=== PATIENT | female | born 1955 | race African-American/Black ===

== ENCOUNTER 2018-07-11 08:47 | Emergency (ER) | payer MEDICARE, OTHER ==
[2018-07-11] MEDS: ONDANSETRON (ODT) 4 MG TAB ODT (10:17)
[2018-07-11] MEDS: HYDROmorphONE 0.5 MG/0.5 ML SYG IM (10:18)
== END 2018-07-11 12:46 | disposition home or self-care (01) ==
LOC: E/R 08:47
DX: K64.9 Unspecified hemorrhoids (principal); I10 Essential (primary) hypertension; J45.909 Unspecified asthma, uncomplicated; Z87.891 Personal history of nicotine dependence
CPT/HCPCS: 74176; 96372; 99285-25

== ENCOUNTER 2019-05-18 10:56 | Emergency (ER) | payer MEDICARE, OTHER ==
[2019-05-18] MEDS: HYDROCODONE/APAP (5/325) TAB PO (11:36)
[2019-05-18] MEDS: ONDANSETRON (ODT) 4 MG TAB ODT (11:36)
[2019-05-18 11:53] LABS: ADD MAN DIFF? NO
[2019-05-18 11:54] LABS: WHITE BLOOD COUNT 7.3 10^3/ul (4.8-10.8)
[2019-05-18 11:54] LABS: BASOPHIL # 0.1 10^3/ul (0.0-0.1); EOSINOPHILS # 0.2 10^3/ul (0.0-0.5); HEMATOCRIT 36.8 % (37.0-47.0); HEMOGLOBIN 11.7 g/dl (12.0-16.0); LYMPHOCYTES # 3.3 10^3/ul (0.8-2.9); LYMPHOCYTES % 44.9 % (15.0-51.0); MEAN CORPUSCULAR HEMOGLOBIN 26.9 pg (29.0-33.0); MEAN CORPUSCULAR HGB CONC 31.8 g/dl (32.0-37.0); MEAN CORPUSCULAR VOLUME 84.6 fl (82.0-101.0); MEAN PLATELET VOLUME 9.5 fl (7.4-10.4); MONOCYTE # 0.6 10^3/ul (0.3-0.9); MONOCYTES % 8.5 % (0.0-11.0); NEUTROPHIL # 3.1 10^3/ul (1.6-7.5); NEUTROPHILS % 42.3 % (39.0-77.0); PLATELET COUNT 289 10^3/UL (140-415); RED BLOOD COUNT 4.35 10^6/ul (4.20-5.40); RED CELL DISTRIBUTION WIDTH 15.9 % (11.5-14.5)
[2019-05-18 12:17] LABS: URIC ACID 5.4 mg/dl (3.1-7.9)
== END 2019-05-18 13:00 | disposition home or self-care (01) ==
LOC: FTE 10:56
DX: M25.571 Pain in right ankle and joints of right foot (principal)
CPT/HCPCS: 73610; 73610-RT; 84560; 85025; 93971; 99285-25